=== PATIENT | female | born 1980 | race Two or more races ===

== ENCOUNTER 2017-01-30 17:46 | Emergency (ER) | payer OTHER ==
[2017-01-30 18:23] VITALS: RESP 18; TEMP 98.8
--- NOTE | 2017-01-30 18:31 | ED ---
General Adult HPI - General Chief complaint: Extremity Injury, Lower Stated complaint: ankle injury Time Seen by Provider: 01/30/17 18:13 Source: patient, RN notes reviewed Mode of arrival: ambulatory Limitations: physical limitation - History of Present Illness Initial comments: Patient is a 36-year-old female who presents emergency room today with a chief complaint of an injury to the right ankle that occurred just prior to arrival. She states she was at her grandmother's house she was stepping into the room there is a slight stepdown caught her foot on the left side causing her to roll her right ankle. She does admit to increased pain swelling locally to the right ankle both pain to the medial and lateral aspects. Does admit that she fell down onto the right hip. Denies any head injury or loss consciousness. Patient denies any other complaints or symptoms. Does admit that she did roll the left ankle mildly but feels that it is okay. Patient denies any recent fever , chills, shortness of breath, chest pain, back pain, abdominal pain, nausea or vomiting, numbness or tingling, dysuria or hematuria, constipation or diarrhea, headaches or visual changes, or any other complaints. - Related Data Previous Rx's Medication Instructions Recorded Ibuprofen [Motrin] 600 mg PO Q6HR PRN #40 day 01/30/17 Allergies Allergy/AdvReac Type Severity Reaction Status Date / Time Sulfa (Sulfonamide Allergy Nausea Verified 01/30/17 18:18 Antibiotics) Review of Systems ROS Statement: Those systems with pertinent positive or pertinent negative responses have been documented in the HPI. ROS Other: All systems not noted in ROS Statement are negative. Past Medical History Past Medical History: No Reported History History of Any Multi-Drug Resistant Organisms: None Reported Additional Past Surgical History / Comment(s): left breast fibroid removal Past Psychological History: No Psychological Hx Reported Smoking Status: Current every day smoker Past Alcohol Use History: None Reported Past Drug Use History: None Reported General Exam - General Exam Comments Initial Comments: General: The patient is awake and alert, in no distress, and does not appear acutely ill. Neck: The neck is supple, there is no tenderness or JVD. Cardiovascular: There is a regular rate and rhythm. No murmur, rub or gallop is appreciated. Respiratory: Lungs are clear to auscultation, respirations are non-labored, breath sounds are equal. No wheezes, stridor, rales, or rhonchi. Musculoskeletal: Does have moderate swelling over the lateral aspect of right ankle. Mild tenderness over the lateral malleolus. No tenderness over the medial. Mild tenderness over the posterior aspect laterally behind malleolus of the right ankle. No tenderness down to the right foot. Neurological: A&O x 3. CN II-XII intact, There are no obvious motor or sensory deficits. Coordination appears grossly intact. Speech is normal. Skin: Skin is warm and dry and no rashes or lesions are noted. Psychiatric: Normal mood and affect. Limitations: physical limitation Course Vital Signs 01/30/17 18:18 Temperature 98.8 F Pulse Rate 74 Respiratory 18 Rate Blood Pressure 130/74 O2 Sat by Pulse 99 Oximetry Medical Decision Making - Medical Decision Making X-ray reviewed and are negative for any acute abnormalities. Patient placed in Aircast splint here the emergency room and advised to use this when up and moving around. Advised to ice elevate the affected area and use ibuprofen. Advised follow-up with family doctor or orthopedics in 7-10 days or repeat x- rays if symptoms persist. Disposition Clinical Impression: Ankle sprain Disposition: HOME SELF-CARE Condition: Good Instructions: Ankle Sprain (ED) Additional Instructions: Please use splint when up and moving around but do not sleep with it on. Please continue to ice elevate the affected area as discussed. Please use ibuprofen for pain. Please follow-up the family doctor or orthopedics in 7-10 days for repeat x-rays if symptoms persist. Prescriptions: Ibuprofen [Motrin] 600 mg PO Q6HR PRN #40 day PRN Reason: Pain Time of Disposition: 18:48
[2017-01-30] MEDS ORDERED: IBUPROFEN 600 MG TAB PO STA (18:43)
--- NOTE | 2017-01-30 18:43 | XR ---
EXAMINATION TYPE: XR ankle complete RT DATE OF EXAM: 01/30/2017 6:39 PM COMPARISON: NONE HISTORY: Pain TECHNIQUE: 3 views FINDINGS: Ankle mortise is anatomic. There is soft tissue swelling over the lateral malleolus. There is a small Achilles calcaneal spur. I see no fracture. IMPRESSION: Soft tissue swelling. No fracture seen.
[2017-01-30 19:00] VITALS: BP 128/76; PULSE 90
== END 2017-01-30 19:00 | disposition home or self-care (01) ==
LOC: EC 17:46
DX: S93.401A Sprain of unspecified ligament of right ankle, initial encounter (principal); F17.200 Nicotine dependence, unspecified, uncomplicated; Z88.2 Allergy status to sulfonamides; W10.9XXA Fall (on) (from) unspecified stairs and steps, initial encounter; X50.1XXA Overexertion from prolonged static or awkward postures, initial encounter; Y92.009 Unspecified place in unspecified non-institutional (private) residence as the place of occurrence of the external cause
CPT/HCPCS: 73610; 99283; L4350

== ENCOUNTER → 2018-10-23 | Outpatient (CLI) | payer BC ==
--- NOTE | 2018-10-23 13:42 | US ---
EXAMINATION TYPE: US transvaginal DATE OF EXAM: 10/23/2018 COMPARISON: NONE CLINICAL HISTORY: IUD placement Z97.5, N92.3 Ovulation bleeding. Hx of IUD placement x 8 years ago. I rregular spotting. TECHNIQUE: Transvaginal (TV). Date of LMP: 09/28/2018, EXAM MEASUREMENTS: Uterus: 8.6 x 5.1 x 4.3 cm Endometrial Stripe: 0.7 cm Right Ovary: 3.4 x 1.8 x 1.6 cm Left Ovary: 3.8 x 2.6 x 2.1 cm 1. Uterus: Anteverted Heterogenous with punctate echogenic foci. 2. Endometrium: IUD visualized and appropriately centrally located. Multiple punctate echogenic foci are seen. 3. Right Ovary: Follicles seen. Echogenic region- 0.8 x 0.5 cm . This could represent an echogenic clot from prior hemorrhagic involuting cyst or less likely dermoid. Follow-up is recommended in 3 men strual cycles to evaluate for resolution. 4. Left Ovary: Dominant follicle seen - 2.0 x 1.9 x 1.8 cm 5. Bilateral Adnexa: wnl 6. Posterior cul-de-sac: no free fluid Cervix- fluid seen within canal IMPRESSION: 1. Endometrial thickness is within normal limits for a premenopausal female. IUD is seen centrally, a ppropriately placed. 2. Right ovarian 8mm echogenic area that could represent sequela of an involuting hemorrhagic cyst or less likely dermoid. Follow-up is recommended in 3 menstrual cycles to evaluate potential resolution . 3. Multiple punctate echogenic foci are seen within the endometrium and junctional zone, typically a benign incidental finding although these can be associated with endometrial polyps.
== END ==
LOC: RADUSWWP 12:48
PROVIDERS: ATTEND Obstetrics & Gynecology
DX: N83.8 Other noninflammatory disorders of ovary, fallopian tube and broad ligament (principal); N92.3 Ovulation bleeding; Z97.5 Presence of (intrauterine) contraceptive device
CPT/HCPCS: 76830

== ENCOUNTER → 2022-01-05 | Outpatient (CLI) | payer OTHER ==
--- NOTE | 2022-01-05 11:01 | NM ---
EXAMINATION TYPE: NM hepatobiliary w EF DATE OF EXAM: 01/05/2022 COMPARISON: NONE INDICATION: Epigastric pain TECHNIQUE: After the intravenous administration of 4.2 mCi Tc 99m Mebrofenin hepatobiliary scintigrap hy is performed. Images were obtained immediately post injection. FINDINGS: There is prompt uptake and excretion of radiotracer by the liver. Extrahepatic ducts are identified at 2 minutes. The gallbladder is not visualized within 60 minutes. A 90 minute delay film however does identify a f aint gallbladder. Small bowel activity is noted within 4 minutes. At one hour 8 ounces of oral ensure plus is given to mimic CCK and gallbladder ejection fraction is c alculated at 1 %, which is abnormally low. (Normal >35% and <80%.). IMPRESSION: 1. Delayed filling of the gallbladder. 2. No significant ejection is evident. Consider acalculous cholecystitis.
== END | disposition home or self-care (01) ==
LOC: RADNMMAIN 06:56
PROVIDERS: ATTEND Family Medicine
DX: R93.2 Abnormal findings on diagnostic imaging of liver and biliary tract (principal)
CPT/HCPCS: 78226; A9537

== ENCOUNTER → 2022-03-08 | Outpatient (CLI) | payer OTHER ==
--- NOTE | 2022-03-08 19:59 | CT ---
EXAMINATION TYPE: CT abdomen pelvis w con DATE OF EXAM: 03/08/2022 COMPARISON: No previous CT scan is available for comparison HISTORY: Diverticulitis of large intestine w/o perforation or abscess CT DLP: 1090 mGycm Automated exposure control for dose reduction was used. TECHNIQUE: Helical acquisition of images was performed from the lung bases through the pelvis. CONTRAST: Performed with Oral Contrast and with IV Contrast, patient injected with 100 ml mL of Isovue 300. FINDINGS: LUNG BASES: No significant abnormality is appreciated. LIVER/GB: No significant abnormality is appreciated. PANCREAS: No significant abnormality is seen. SPLEEN: No significant abnormality is seen. ADRENALS: 19 mm left adrenal nodule, incompletely characterized and could represent an adrenal adenom a. Further dedicated adrenal protocol CT scan can be considered. Unremarkable right adrenal. KIDNEYS: Unremarkable kidneys. FREE AIR: No free air is visualized. RETROPERITONEAL ADENOPATHY: None visualized REPRODUCTIVE ORGANS: IUCD seen within the uterus. Fluid is seen surrounding the cervix, please correl ate with elective pelvic ultrasound results. Bilateral ovarian follicles/cysts, expected for the liliana ent's age yet suboptimally assessed. URINARY BLADDER: No significant abnormality is seen. PELVIC ADENOPATHY: None visualized. OSSEOUS STRUCTURES: No aggressive bone lesion. BOWEL: Grossly unremarkable stomach, duodenum and small bowel. Moderate fecal loading of the colon. No evidence of acute diverticulitis. Nondistention of the proximal transverse colon and hepatic flexu re of the colon. Normal appendix. OTHER: No sizable ascites. IMPRESSION: No evidence of acute diverticulitis. Incidental findings as described above.
== END | disposition home or self-care (01) ==
LOC: RADCTMAIN 12:01
PROVIDERS: ATTEND Surgery Plastic and Reconstructive Surgery
DX: K57.32 Diverticulitis of large intestine without perforation or abscess without bleeding (principal)
CPT/HCPCS: 74177; Q9967

== ENCOUNTER 2022-03-29 09:01 | Day surgery (SDC) | payer OTHER ==
[2022-03-27 15:00] VITALS: BMI 25.8
--- NOTE | 2022-03-29 06:36 | P.GSHP ---
History of Present Illness H&P Date: 03/29/22 CHIEF COMPLAINT: GERD and colon screen HISTORY OF PRESENT ILLNESS: The patient is a 41-year-old female who presents with gastroesophageal reflux disease and need for colon screen. Upper and lower endoscopy were offered for further evaluation and management. PAST MEDICAL HISTORY: Please see list. PAST SURGICAL HISTORY: Please see list. MEDICATIONS: Please see list. ALLERGIES: Please see list. SOCIAL HISTORY: No illicit drug use FAMILY HISTORY: No reports of Crohn disease or ulcerative colitis. REVIEW OF ORGAN SYSTEMS: CONSTITUTIONAL: No reports of fevers or chills. GI: Denies any blood in stools or constipation. PHYSICAL EXAM: VITAL SIGNS: Stable GENERAL: Well-developed pleasant in no acute distress. HEENT: No scleral icterus. Extraocular movements grossly intact. Moist buccal mucosa. NECK: Supple without lymphadenopathy. CHEST: Unlabored respirations. Equal bilateral excursions. CARDIOVASCULAR: Regular rate and rhythm. Distal 2+ pulses. ABDOMEN: Soft, nondistended. MUSCULOSKELETAL: No clubbing, cyanosis, or edema. ASSESSMENT: 1. Gastroesophageal reflux disease 2. Colon screen. PLAN: 1. Recommend proceeding with an upper and lower endoscopy Past Medical History Past Medical History: Thyroid Disorder Additional Past Medical History / Comment(s): IBS symptoms,occass bleeding with stools History of Any Multi-Drug Resistant Organisms: None Reported Additional Past Surgical History / Comment(s): left breast fibroid removal Past Anesthesia/Blood Transfusion Reactions: No Reported Reaction, Family Histor y of Problems w/ Anesthesia Additional Past Anesthesia/Blood Transfusion Reaction / Comment(s): mom has PONV Smoking Status: Current every day smoker - Past Family History Brother(s) Family Medical History: Cancer Additional Family Medical History / Comment(s): Hodgekins or nonhodgekins Medications and Allergies Home Medications Medication Instructions Recorded Confirmed Type Citalopram Hydrobromide 40 mg PO QAM 03/27/22 03/27/22 History Levothyroxine Sodium [Synthroid] 25 mcg PO QAM 03/27/22 03/27/22 History Allergies Allergy/AdvReac Type Severity Reaction Status Date / Time Sulfa (Sulfonamide AdvReac Nausea Verified 03/27/22 14:53 Antibiotics)
[2022-03-29] MEDS ORDERED: LACTATED RINGERS 1,000 ML IV SCH ×2 (09:15)
[2022-03-29] MEDS ORDERED: LIDOCAINE 1% (10MG/ML) FOR IV START INTRADERMA PRN (09:15)
[2022-03-29 09:25] VITALS: RESP 16; TEMP 98.2
[2022-03-29] MEDS ORDERED: PROPOFOL 10 MG/ML 20 ML VIAL IV ONE (10:01)
[2022-03-29] MEDS ORDERED: LIDOCAINE 2% INJ 20 MG/ML (2 ML VIAL) ONE (10:01)
--- NOTE | 2022-03-29 10:15 | P.PCN ---
Date of Procedure: 03/29/22 Description of Procedure: PREOPERATIVE DIAGNOSIS: Gastroesophageal reflux disease. POSTOPERATIVE DIAGNOSIS: Gastroesophageal reflux disease. Gastritis with bleeding Diaphragmatic hiatal hernia OPERATION: Esophagogastroduodenoscopy with biopsies along antrum, and duodenum SURGEON: Stacia Pink MD ANESTHESIA: MAC. INDICATIONS: The patient is a 41-year-old female who presents with reflux disease. Benefits and risks of the procedure were described. Informed consent was obtained. DESCRIPTION: The patient was brought into the endoscopy suite and laid in the left lateral decubitus position. An Olympus gastroscope was passed along the posterior oropharynx down to the distal esophagus where the squamocolumnar junction was encountered at 36 cm from the incisors. The stomach was entered and no bile reflux was found. Additional findings are listed below. Biopsies with cold forceps were obtained of the antrum. The first through third portion of the duodenum was examined. Retroflexion of the scope confirmed Hill grade 3 lower esophageal valve. The squamocolumnar junction demonstrated LA grade B erosive esophagitis. The stomach was desufflated. The patient tolerated the procedure well. FINDINGS: Squamocolumnar junction 36 cm from the incisors. Diaphragmatic hiatus at 37 cm. Hiatal hernia, 1 cm Hill grade 3 lower esophageal valve. LA grade B erosive esophagitis. Cold biopsies obtained of duodenum Gastritis with recent bleed RECOMMENDATIONS: Upper endoscopy as needed.
--- NOTE | 2022-03-29 10:49 | P.PCN ---
Date of Procedure: 03/29/22 Description of Procedure: PREOPERATIVE DIAGNOSIS: Colitis Change in bowel habits POSTOPERATIVE DIAGNOSIS: Colitis Change in bowel habits OPERATION: Colonoscopy to the cecum, ileocecal valve and appendiceal orifice. Colonoscopy with random cold forceps biopsies for microscopic colitis SURGEON: Stacia Pink MD. ANESTHESIA: MAC. INDICATIONS: The patient is a 41-year-old female who presents with altered stools including change in bowel habits and history of colitis. Benefits and risks were descr ibed and informed consent was obtained. DESCRIPTION OF PROCEDURE: The patient had undergone Suprep. The patient had been brought into the operating room and laid in the left lateral decubitus position. After adequate intravenous sedation, the rectum was examined with 2% lidocaine jelly. No external hemorrhoids were encountered. The rectal tone was within normal limits. No lesions were palpated in the rectal vault. An Olympus colonoscope was advanced until the cecum, ileocecal valve and appendiceal orifice were clearly viewed. The prep was poor to fair. No scattered diverticulosis was encou ntered. No colonic polyps were found. Cold forceps biopsies randomly were obtained for microscopic colitis. Retroflexion of the scope demonstrated grade 1 internal hemorrhoids without active bleeding or inflammation. The colon was desufflated. The patient had tolerated the procedure well. Withdrawal time was over 6 minutes. FINDINGS: Aronchick preparation quality scale 3 (1-5) Internal hemorrhoids, grade 1 No external prolapsed hemorrhoids. No arteriovenous malformations. No adenomatous polyps. Cold forceps biopsies obtained for microscopic colitis RECOMMENDATIONS: Lower endoscopy as needed Plan - Discharge Summary Discharge Rx Participant: No New Discharge Prescriptions: New Pantoprazole [Protonix] 40 mg PO DAILY #14 tab Continue Levothyroxine Sodium [Synthroid] 25 mcg PO QAM Citalopram Hydrobromide [Citalopram HBr] 40 mg PO QAM Discharge Medication List Citalopram Hydrobromide [Citalopram HBr] 40 mg PO QAM 03/27/22 [History] Levothyroxine Sodium [Synthroid] 25 mcg PO QAM 03/27/22 [History] Pantoprazole [Protonix] 40 mg PO DAILY #14 tab 03/29/22 [Rx] Follow up Appointment(s)/Referral(s): Stacia Pink MD [STAFF PHYSICIAN] - 06/28/22 Patient Instructions/Handouts: Gastritis (DC), Colonoscopy (DC) Activity/Diet/Wound Care/Special Instructions: Repeat colonoscopy in 3 years, 2024 Discharge Disposition: HOME SELF-CARE
[2022-03-29 11:03] VITALS: BP 131/72; PULSE 55
== END 2022-03-29 11:43 | disposition home or self-care (01) ==
LOC: ORWHC2ENDO 09:01
PROVIDERS: ATTEND Surgery Plastic and Reconstructive Surgery
DX: K29.50 Unspecified chronic gastritis without bleeding (principal); K21.00 Gastro-esophageal reflux disease with esophagitis, without bleeding; K64.0 First degree hemorrhoids; E03.9 Hypothyroidism, unspecified; Z80.9 Family history of malignant neoplasm, unspecified; F32.A Depression, unspecified; Z79.899 Other long term (current) drug therapy; Z88.2 Allergy status to sulfonamides; F17.210 Nicotine dependence, cigarettes, uncomplicated
CPT/HCPCS: 81025; 88305; 45380; 43239; J2704; J2001

== ENCOUNTER → 2023-06-04 | Outpatient (CLI) | payer OTHER ==
--- NOTE | 2023-06-06 20:44 | CT ---
EXAMINATION TYPE: CT adrenal glands wo/w con DATE OF EXAM: 06/04/2023 COMPARISON: 03/08/2022 HISTORY: 43-year-old female D35.02, BENIGN NEOPLASM OF LEFT ADRENAL GLAND TECHNIQUE: Contiguous axial scanning of the abdomen and pelvis performed without and with IV Contrast , patient injected with 100ml mL of Isovue 300. Delayed images through the adrenal glands were obtain ed. Coronal/sagittal reconstructions performed. CT DLP: 1307.4 mGycm Automated exposure control for dose reduction was used. FINDINGS: 1.4 cm area of nodularity central 6:00 position left breast. Diagnostic workup mammogram and ultrasou nd recommended. Possible focal island of fibroglandular tissue versus underlying mass. Heart normal size without pericardial effusion. Lung bases clear without pleural effusion. No focal liver lesion or biliary ductal dilatation. Portal venous system is patent. Gallbladder, right adrenal gland, kidneys, spleen, and pancreas within normal limits. Redemonstrated 1.9 cm nodule of the left adrenal gland. Noncontrast attenuation ranging between -1 an d -4 Hounsfield units. Findings most compatible with lipid rich adrenal adenoma. No dilated small bowel, free fluid, or free air. No mesenteric or retroperitoneal lymphadenopathy. Normal appendix. Oral contrast progressed into the ascending colon. No significant stool burden. No p ericolonic inflammatory change. Bladder urine distended. Uterus is anteverted. IUD appropriately situated along the uterine cavity. T here is rounded prominence to the region of the cervix on axial image 76 for which direct visualizati on and Pap smear is recommended. Both ovaries are visualized with follicular change. No abnormal flui d collection in the pelvis or pelvic lymphadenopathy. Bones: Transitional lumbosacral segment. No osseous destructive process. IMPRESSION: 1. STABLE LEFT ADRENAL NODULE MEASURING 1.9 CM. ENHANCEMENT CHARACTERISTICS COMPATIBLE WITH A LIPID R ICH ADRENAL ADENOMA. 2. POSSIBLE 1.4 CM AREA OF CENTRAL 6:00 LEFT BREAST NODULARITY COULD REPRESENT A PROMINENT ISLAND OF FIBROGLANDULAR TISSUE VERSUS UNDERLYING MASS. RECOMMEND DIAGNOSTIC MAMMOGRAM AND ULTRASOUND TO FURTHE R EVALUATE IF ROUTINE SCREENING IS NOT BEING PERFORMED. 3. ROUNDED SOFT TISSUE PROMINENCE IN THE REGION OF THE CERVIX COULD REPRESENT NORMAL VARIATION IN JERROD LEONARDO. RECOMMEND DIRECT VISUALIZATION AND PAP SMEAR TO EXCLUDE AN UNDERLYING CERVICAL LESION.
== END | disposition home or self-care (01) ==
LOC: RADCTMAIN 13:37
PROVIDERS: ATTEND Family Medicine
DX: D35.02 Benign neoplasm of left adrenal gland (principal)
CPT/HCPCS: 74170; Q9967

== ENCOUNTER → 2023-07-04 | Outpatient (CLI) | payer OTHER ==
--- NOTE | 2023-07-05 11:16 | MM ---
Reason for Exam: Screening (asymptomatic). Patient History: Menarche at age 13. First Full-Term at age 30. Late child-bearing (after 29). 1997, Lumpectomy on the Left side. Risk Values: Arlyn 5 year model risk: 1.0%. NCI Lifetime model risk: 12.0%. Tissue Density: The breast tissue is heterogeneously dense. This may lower the sensitivity of mammography. Findings: Analyzed By CAD. There is no suspicious group of microcalcifications or new suspicious mass in either breast. There is an area of asymmetric density. Central aspect right breast not well-seen on the cc view. There are no prior exams available for comparison. Overall Assessment: Incomplete: need additional imaging evaluation, BI-RAD 0 Management: Diagnostic Mammogram of the right breast. . Patient should continue monthly self-breast exams. A clinical breast exam by your physician is recommended on an annual basis. This exam should not preclude additional follow-up of suspicious palpable abnormalities. Note on Arlyn scores and lifetime risk: 1. A Arlyn score greater than 3% is considered moderate risk. If this is the case, consider specialist referral to assess eligibility for a risk reducing agent. 2. If overall lifetime risk for the development of breast cancer is 20% or higher, the patient may qualify for future screening with alternating mammogram and breast MRI. Electronically signed and approved by: Favian Kelly M.D. Radiologis
== END | disposition home or self-care (01) ==
LOC: RADMAMWWP 15:58
PROVIDERS: ATTEND Obstetrics & Gynecology
DX: Z12.31 Encounter for screening mammogram for malignant neoplasm of breast (principal)
CPT/HCPCS: 77063; 77067

== ENCOUNTER → 2024-02-18 | Outpatient (CLI) | payer OTHER ==
--- NOTE | 2024-02-18 13:15 | XR ---
EXAMINATION TYPE: XR thoraco lumbar junction DATE OF EXAM: 02/18/2024 12:55 PM CLINICAL INDICATION:Female, 43 years old with history of M54.50 LOW BACK PAIN M54.6 PAIN IN THORACIC SPINE COMPARISON: None TECHNIQUE: XR thoraco lumbar junction - Frontal, lateral and coned in L5-S1 lateral views of the spin e. FINDINGS: No evidence of any acute osseous pathology. No evidence of loss of vertebral body height i s seen. There is normal alignment of the lumbar vertebral bodies. Mild scattered disc space narrowing . Multilevel marginal osteophyte formation throughout the visualized spine. There is facet joint arth ropathy throughout the spine. Scattered at least mild neural foraminal stenosis. IMPRESSION: 1. No acute fracture. 2. Mild multilevel disc degeneration.
--- NOTE | 2024-02-18 13:18 | XR ---
EXAMINATION TYPE: XR lumbar spine 2 or 3V DATE OF EXAM: 02/18/2024 12:55 PM CLINICAL INDICATION:Female, 43 years old with history of M54.50 LOW BACK PAIN M54.6 PAIN IN THORACIC SPINE; [facility] COMPARISON: 02/18/2024 TECHNIQUE: XR lumbar spine 2 or 3V - Frontal, lateral and coned in L5-S1 lateral views of the spine. FINDINGS: No evidence of any acute osseous pathology. No evidence of loss of vertebral body height i s seen. There is normal alignment of the lumbar vertebral bodies. Mild scattered disc space narrowing . Multilevel marginal osteophyte formation throughout the visualized spine. There is facet joint arth ropathy throughout the spine. Scattered at least mild neural foraminal stenosis. IMPRESSION: 1. No acute fracture. 2. Mild multilevel disc degeneration.
== END | disposition home or self-care (01) ==
LOC: RADXRMAIN 12:36
PROVIDERS: ATTEND Family Medicine
DX: M51.35 Other intervertebral disc degeneration, thoracolumbar region (principal)
CPT/HCPCS: 72080; 72100

== ENCOUNTER → 2024-07-01 | Outpatient (CLI) | payer OTHER ==
--- NOTE | 2024-07-01 22:30 | MR ---
EXAMINATION TYPE: MR lumbar spine wo con DATE OF EXAM: 07/01/2024 COMPARISON: None HISTORY: LBP in the center, occasional RLE radiculopathy. CONTRAST: 0 mL intravenous Gadavist. TECHNIQUE: Multiplanar, multisequence images of the lumbar spine were acquired. FINDINGS: The S1 level may be transitional. Plain film correlation would be recommended prior to any surgical intervention for purposes of this exam the lowest disc level is labeled S1-2. There is disc desiccation L5-S1. Remaining discs have normal hydration. Disc heights are preserved. V ertebral body heights are preserved. Cord terminates at the L1-2 level. No focal disc herniations are evident. No significant disc bulging is evident. No spinal canal stenos is or neural foraminal stenosis is present. Abdominal aorta and kidneys within the field of view appear unremarkable. Paraspinal musculature appe ars unremarkable. Subcutaneous tissue as visualized appears normal. IMPRESSION: 1. No suspicious acute abnormality to account for right lower extremity or mid back pain [facility], , 07/01/2024 10:27 PM
== END | disposition home or self-care (01) ==
LOC: RADMRIMAIN 11:29
PROVIDERS: ATTEND Family Medicine
DX: M51.36 Other intervertebral disc degeneration, lumbar region (principal)
CPT/HCPCS: 72148

== ENCOUNTER 2024-09-10 07:42 | Day surgery (SDC) | payer OTHER ==
[2024-09-09 09:47] VITALS: BMI 29.8
[~2024-09-10 07:42] MED LIST: HYDROmorphone 0.5 MG/0.5 ML SYRINGE IVP PRN; Pre Op ABX Message 1 EACH MISC MISCELLANE ONE; droPERidol 5 MG/2 ML VIAL IVP ONE
[2024-09-10] MEDS: IV FLUID CONTINUATION 1,000 ML IV ONE (08:30)
[2024-09-10] MEDS: LACTATED RINGERS 1,000 ML IV SCH (08:40)
[2024-09-10] MEDS: LIDOCAINE 1% (10MG/ML) FOR IV START INTRADERMA PRN (08:40)
[2024-09-10] MEDS: ONDANSETRON 4 MG/2 ML VIAL IVP ONE (08:47)
[2024-09-10] MEDS: ACETAMINOPHEN TAB 500 MG TAB PO PRN (08:47)
[2024-09-10] MEDS: HEPARIN SODIUM,PORCINE 5,000 UNIT/ML 1 ML VIAL SQ PRN (08:48)
[2024-09-10] MEDS: DEXAMETHASONE SOD PHOSPHATE 4 MG/ML 1 ML VIAL IV ONE (08:48)
[2024-09-10 08:54] LABS: Basophils # (A) 0.1 k/uL (0-0.2); Basophils % (A) 1 %; Eosinophils # (A) 0.3 k/uL (0-0.7); Eosinophils % (A) 4 %; HCT 41.3 % (34.0-46.0); HGB 13.9 gm/dL (11.4-16.0); Lymphocytes # (A) 1.3 k/uL (1.0-4.8); Lymphocytes % (A) 17 %; MCH 32.3 pg (25.0-35.0); MCHC 33.6 g/dL (31.0-37.0); MCV 96.1 fL (80.0-100.0); Mean Platelet Volume 6.4; Monocytes # (A) 0.3 k/uL (0-1.0); Monocytes % (A) 4 %; Neutrophils # (A) 5.5 k/uL (1.3-7.7); Neutrophils % (A) 72 %; Platelet Count 397 k/uL (150-450); RDW 12.8 % (11.5-15.5); WBC 7.6 k/uL (3.8-10.6)
[2024-09-10] MEDS ORDERED: LIDOCAINE 1% INJ 10MG/ML (20 ML MDV) ONE (09:47)
[2024-09-10] MEDS ORDERED: SUCCINYLCHOLINE CHLORIDE 200 MG/10 ML VIAL IV ONE (09:47)
[2024-09-10] MEDS ORDERED: MIDAZOLAM 2 MG/2 ML VIAL ONE (09:47)
[2024-09-10] MEDS ORDERED: fentaNYL (PF) 50 MCG/ML 2 ML AMP ONE (09:47)
[2024-09-10] MEDS ORDERED: PROPOFOL 10 MG/ML 20 ML VIAL IV ONE (09:47)
[2024-09-10] MEDS: LACTATED RINGERS 1,000 ML IV ONE (10:18)
[2024-09-10] MEDS: LIDOCAINE 1%-EPI 1:100,000 20 ML VIAL SQ ONE ×2 (10:21→10:24)
--- NOTE | 2024-09-10 10:35 | P.OP ---
Date of Procedure: 09/10/24 Preoperative Diagnosis: Rectal abscess Postoperative Diagnosis: Perirectal abscess with fistula Procedure(s) Performed: Incision drainage of perirectal abscess and unroofing of fistula Anesthesia: NOBLE Surgeon: Dani Luong Estimated Blood Loss (ml): 5 Pathology: none sent Condition: stable Disposition: PACU Description of Procedure: The patient is placed the op table in the prone jackknife position. She received general anesthesia. The anus was prepped and draped you sterile fashion. In the left perianal area there was evidence of a chronic abscess. The area was probed with the anal probe. The fistulous tract was identified. Fistulous track was opened. The fistula appeared to extend to the level of the external sphincter. Care was taken to not divide the external sphincter. There was no opening seen in the anus. There is no bleeding seen. Sterile dressing was applied. Patient tolerated well. He was sent to recovery in stable condition.
[2024-09-10 11:03] VITALS: TEMP 96.8
[2024-09-10 11:15] VITALS: RESP 16
[2024-09-10 11:54] VITALS: BP 112/70; PULSE 66
== END 2024-09-10 12:52 | disposition home or self-care (01) ==
LOC: OR 07:42
PROVIDERS: ATTEND Surgery
DX: K61.1 Rectal abscess (principal)
CPT/HCPCS: 46040; 81025; 85025; J2250; J0330; J1644; J1100; J0690; J2405; J2003; J3010; J2704

== ENCOUNTER → 2024-10-14 | Outpatient (CLI) | payer OTHER ==
--- NOTE | 2024-10-16 16:38 | MM ---
Reason for Exam: Screening (asymptomatic). Last mammogram was performed 1 year(s) and 3 month(s) ago. Patient History: Menarche at age 13. First Full-Term at age 30. Late child-bearing (after 30). Perimenopausal. Patient has history of breast feeding. 1997, Lumpectomy on the Left side. Risk Values: Arlyn 5 year model risk: 1.0%. NCI Lifetime model risk: 11.9%. Prior Study Comparison: 07/04/2023 Bilateral MG 3D screening mammo w/cad, [facility]. 07/09/2023 Right MG 3D work up w/cad RT, [facility] WITH [facility]. Tissue Density: The breasts are heterogeneously dense, which may obscure small masses. Findings: Analyzed By CAD. The pattern is symmetrical. There is some distortion in the mid left craniocaudal view. Recommend compression view over this area. Right breast:No suspicious groups of microcalcifications, spiculated or lobular masses, architectural distortion or other secondary signs of malignancy are mammographically apparent. Overall Assessment: Incomplete: need additional imaging evaluation, BI-RAD 0 Management: Diagnostic Mammogram of the left breast. A negative mammogram report should not preclude additional follow up of suspicious palpable abnormalities. Patient should continue monthly self breast exam. A clinical breast exam by your physician is recommended on an annual basis and results should be correlated with mammographic findings. Note on Arlyn scores and lifetime risk: 1. A Arlyn score greater than 3% is considered moderate risk. If this is the case, consider specialist referral to assess eligibility for a risk reducing agent. 2. If overall lifetime risk for the development of breast cancer is 20% or higher, the patient may qualify for future screening with alternating mammogram and breast MRI. [facility], , 10/16/2024 4:35 PM. Electronically signed and approved by: Shawn Gastelum D.O. Radiologis
== END | disposition home or self-care (01) ==
LOC: RADMAMWWP 11:25
PROVIDERS: ATTEND Family Medicine
DX: Z12.31 Encounter for screening mammogram for malignant neoplasm of breast (principal); R92.333 Mammographic heterogeneous density, bilateral breasts
CPT/HCPCS: 77063; 77067

== ENCOUNTER → 2024-10-27 | Outpatient (CLI) | payer OTHER ==
--- NOTE | 2024-10-29 10:55 | MM ---
Reason for Exam: Additional evaluation requested from abnormal screening. Last screening mammogram was performed less than 1 month ago. Patient History: Menarche at age 13. First Full-Term at age 30. Late child-bearing (after 29). Perimenopausal. Patient has history of breast feeding. 1997, Lumpectomy on the Left side. Risk Values: Arlyn 5 year model risk: 1.0%. NCI Lifetime model risk: 11.9%. Prior Study Comparison: 07/04/2023 Bilateral MG 3D screening mammo w/cad, [facility]. 07/09/2023 Right MG 3D work up w/cad RT, [facility]. 10/14/2024 Bilateral MG 3D screening mammo w/cad, [facility]. Tissue Density: Left: The breasts are heterogeneously dense, which may obscure small masses. Findings: Analyzed By CAD. No distinct suspicious new lesion persists on additional views. Overall Assessment: Negative, BI-RAD 1 Management: Screening Mammogram of both breasts in 1 year. Return to routine follow-up. Results were given to the patient verbally at the time of exam. Patient should continue monthly self-breast exams. A clinical breast exam by your physician is recommended on an annual basis. This exam should not preclude additional follow-up of suspicious palpable abnormalities. Note on Arlyn scores and lifetime risk: 1. A Arlyn score greater than 3% is considered moderate risk. If this is the case, consider specialist referral to assess eligibility for a risk reducing agent. 2. If overall lifetime risk for the development of breast cancer is 20% or higher, the patient may qualify for future screening with alternating mammogram and breast MRI. [facility], , 10/27/2024 8:43 AM. Electronically signed and approved by: Amadeo Dasilva M.D.
== END | disposition home or self-care (01) ==
LOC: RADMAMWWP 08:02
PROVIDERS: ATTEND Family Medicine
DX: R92.8 Other abnormal and inconclusive findings on diagnostic imaging of breast (principal); R92.333 Mammographic heterogeneous density, bilateral breasts
CPT/HCPCS: 77061; 77065

== ENCOUNTER 2024-12-19 07:11 | Day surgery (SDC) | payer OTHER ==
[2024-12-17 11:11] VITALS: BMI 29.8
[~2024-12-19 07:11] MED LIST changes: +MIDAZOLAM 2 MG/2 ML VIAL IV PRN; -droPERidol 5 MG/2 ML VIAL IVP ONE
[2024-12-19] MEDS: IV FLUID CONTINUATION 1,000 ML IV ONE (08:00)
[2024-12-19] MEDS: ONDANSETRON 4 MG/2 ML VIAL IVP ONE (08:02)
[2024-12-19] MEDS: DEXAMETHASONE SOD PHOSPHATE 4 MG/ML 1 ML VIAL IV ONE (08:02)
[2024-12-19] MEDS: LACTATED RINGERS 1,000 ML IV SCH (08:02)
[2024-12-19] MEDS: HEPARIN SODIUM,PORCINE 5,000 UNIT/ML 1 ML VIAL SQ PRN (08:02)
[2024-12-19] MEDS: SCOPOLAMINE 1 MG/72 HR PATCH TRANSDERM ONE (08:03)
[2024-12-19] MEDS: ACETAMINOPHEN TAB 500 MG TAB PO PRN (08:03)
[2024-12-19] MEDS ORDERED: LIDOCAINE 4% LTA KIT (4 ML) TOPICAL ONE (08:39)
[2024-12-19] MEDS ORDERED: SUCCINYLCHOLINE CHLORIDE 200 MG/10 ML VIAL IV ONE (08:39)
[2024-12-19] MEDS ORDERED: fentaNYL (PF) 50 MCG/ML 2 ML AMP ONE (08:39)
[2024-12-19] MEDS ORDERED: KETOROLAC 15 MG/ML 1 ML VIAL ONE (08:39)
[2024-12-19] MEDS ORDERED: PROPOFOL 10 MG/ML 20 ML VIAL IV ONE (08:39)
[2024-12-19] MEDS ORDERED: MIDAZOLAM 2 MG/2 ML VIAL ONE (08:39)
[2024-12-19] MEDS: SODIUM CHLORIDE 0.9% 100 ML with ceFAZolin 2,000 MG IV ONE (09:08)
[2024-12-19] MEDS: LIDOCAINE 1%-EPI 1:100,000 20 ML VIAL SQ ONE ×2 (09:14)
[2024-12-19 09:39] VITALS: TEMP 97.7
--- NOTE | 2024-12-19 09:43 | P.OP ---
Date of Procedure: 12/19/24 Preoperative Diagnosis: Rectal fistula Postoperative Diagnosis: Rectal fistula Procedure(s) Performed: Exam under anesthesia with placement of rectal fistula seton stitch Anesthesia: NOBLE Surgeon: Dani Luong Estimated Blood Loss (ml): 2 Pathology: none sent Condition: stable Disposition: PACU Description of Procedure: The patient was placed on the operating table in the prone jackknife position after receiving general endotracheal tube anesthesia. The rectum was examined. The anal retractor placed anus. And then the rectal fistula was visualized on the left buttock. This was probed there was an opening within the anus. At this point the probe would have been placed through the fistula. A #5 Ethibond suture was tied to the probe and then this was brought back through the fistula. The suture was then secured to appropriate length. After the seton stitch was placed he is examined. There is no other fistula seen. The area was anesthetized 1% local Xylocaine. Patient tolerated well. She was sent to recovery in stable condition.
[2024-12-19 10:01] VITALS: RESP 16
[2024-12-19 11:15] VITALS: BP 126/80; PULSE 64
== END 2024-12-19 11:17 | disposition home or self-care (01) ==
LOC: OR 07:11
PROVIDERS: ATTEND Surgery
DX: K60.40 Rectal fistula, unspecified (principal); Z88.2 Allergy status to sulfonamides
CPT/HCPCS: 46020; J2250; J0330; J1644; J1100; J2405; J0690; J3010; J1885; J2704